=== PATIENT | male | born 1975 | race Caucasian/White ===

== ENCOUNTER 2025-02-02 13:47 | Emergency (ER) | payer MEDICAID, SELFPAY ==
[2025-02-02 14:18] VITALS: BP 156/98; PULSE 93; RESP 20; TEMP 36.7; O2SAT 96
--- NOTE | 2025-02-02 14:29 | EKG_ITS ---
[facility] [place] [facility] Test Date: 2025-02-02 Pat Name: MARQUIS MAY Department: Room: - Gender: Male Respiratory Support Technician: : 1975 Requested By: Sharda Farah Order Number: [id number] Reading MD: Sharda Farah Measurements Intervals [facility] Rate: 93 P: 35 NM: 177 QRS: -24 QRSD: 107 T: 75 QT: 361 QTc: 451 Interpretive Statements SINUS RHYTHM MODERATE VOLTAGE CRITERIA FOR LVH, CONSIDER NORMAL VARIANT [MEETS CRITERIA IN ONE OF: R(aVL), S(V1), R(V5), R(V5/V6)+S(V1)] ANTERIOR MYOCARDIAL INFARCTION , OF INDETERMINATE AGE [40+ ms Q WAVE AND/OR ST/T ABNORMALITY IN V3/V4] Compared to ECG 05/01/2021 11:41:03 Myocardial infarct finding now present Sinus bradycardia no longer present Sinus arrhythmia no longer present T-wave abnormality no longer present /store/S0/[id number].pdf
--- NOTE | 2025-02-02 14:33 | EDNOTE_ITS ---
<Statement entered by Urmila Riddle MD - 02/03/25 03:41> As co-signing physician, I was present and available for consult prn. I concur with the plan and care as documented by the midlevel provider. ED Recheck Abnl Lab Rx-RME/HPI General Chief Complaint: Recheck/Abnormal Lab/Rx Stated Complaint: High sugar, dizziness, flank pain, possible DKA Time Seen by Provider: 02/02/25 13:57 Arrival date/time: 02/02/25 13:47 RME / HPI RME / HPI narrative: 49-year-old male patient with significant history of diabetes mellitus, came in for evaluation regarding blood sugar above 500 at home for the last few days. P atient was also noted to be nauseous and vomiting. Denies any abdominal pain denies any fever denies any chest pain denies any cough denies any other complaints. Patient is drinking a lot of soda according to the family. Currently taking Jardiance and metformin with good compliance. Related Data Home Medications ?Medication ?Instructions ?Recorded ?Confirmed amlodipine 5 mg tablet 5 mg PO QDAY 01/12/20 hydrocodone 10 mg-acetaminophen 1 tab PO Q4H PRN Pain 01/12/20 04/21/24 325 mg tablet metoprolol succinate 25 mg 25 mg PO QDAY 01/12/2003/25 tablet,extended release 24 hr ascorbic acid (vitamin C) 1,000 mg 1 cap PO DAILY 12/2104/21/24 capsule,extended release aspirin 81 mg tablet,delayed 81 mg PO QDAY 01/02/21 release atorvastatin 40 mg tablet 40 mg PO QDAY 01/02/2104/21 empagliflozin 10 mg tablet 10 mg PO QAM 05/01/2104/21 (Jardiance) liraglutide 0.6 mg/0.1 mL (18 mg/3 1.8 mg subcut Q24H 05/01/21 04/21/24 mL) subcutaneous pen injector (Victoza 2-Kranthi) metformin 500 mg tablet 500 mg PO BID 05/01/2104/21 tizanidine 2 mg capsule 2 mg PO HS 05/01/21 04/21/24 Previous Rx's ?Medication ?Instructions ?Recorded meloxicam 7.5 mg tablet 7.5 mg PO QDAY #45 tabs 02/0 02/13 metoclopramide HCl 10 mg tablet 10 mg PO Q8H PRN nause a and 02/02/25 (Reglan) vomiting #20 tabs Allergies Allergy/AdvReac Type Severity Reaction Status Date / Time No Known Allergies Allergy Verified 02/02/25 13:56 Review of Systems Review of Systems Narrative Review of Systems: Review of system reviewed and within normal limits except mentioned in HPI ED Exam Narrative Physical exam: VITAL SIGNS: Reviewed. GENERAL APPEARANCE: Alert and interactive, follows commands, no acute distress, HEAD AND FACE: Non-traumatic. ENT: PERRL, pink conjunctivitis, eyelid no trauma, Mucous membrane moist. NECK: Supple, nontender, no nuchal rigidity. CHEST: No tenderness, no crepitus, no paradoxical movement, no retractions. LUNGS: Clear, well ventilated, symmetric, no rales, no wheezing, no ronchi, no stridor, good breath sounds bilaterally. HEART: Regular rate, regular rhythm, no murmur, no gallops. ABDOMEN: Soft, positive bowel sounds, nondistended, no guarding, nontender, no rebound, no masses, RECTAL: Deferred. GENITAL: Deferred. NEUROLOGICAL: Gross motor function intact sensory function intact, Appropriate for age. MUSCULOSKELETAL: low back nontender, full range of motion. EXTREMITIES: Nontender, full range of motion. SKIN: Color pink, dry, no rash, no lacerations, no abrasions, no contusions. LYMPHATICS: Deferred. Course Quality Measures none Orders Category Date Time Status EKG (ED ONLY) *Do not use* NOW Care 02/02/25 14:30 Completed EKG (ED Only) Stat Exams 02/02/25 14:29 Draft Acetone [Beta Hydroxybutyrate] Stat Lab 02/02/25 14:46 Completed CBC [CBC] Stat Lab 02/02/25 14:46 Completed CMP [Comprehensive Metabolic Panel] Stat Lab 02/02/25 14:46 Completed Lipase Stat Lab 02/02/25 14:46 Completed Magnesium Stat Lab 02/02/25 14:46 Completed UA, C/S IF [Urinalysis, C/S if Indicated] Stat Lab 02/02/25 14:57 Completed Ondansetron Odt [Zofran Odt] Med 02/02/25 14:31 Discontinued 4 mg PO X1 ONE Ringers Lactated 1000 ml [Lactated Ringers] 1,000 ml Med 02/02/25 14:30 Discontinued IV 999 mls/hr Ringers Lactated 1000 ml [Lactated Ringers] 1,000 ml Med 02/02/25 14:31 Discontinued IV 999 mls/hr Vital Signs Vital signs: Vital Signs Temperature 98.0 F 02/02/25 14:18 Pulse Rate 93 02/02/25 14:18 Respiratory Rate 20 02/02/25 14:18 Blood Pressure 156/98 H 02/02/25 14:18 Pulse Oximetry (%) 96 02/02/25 14:18 Oxygen Delivery Method Room Air 02/02/25 14:18 Recheck / Abnormal Lab / Rx MDM Narrative MDM Narrative:: 49-year-old male patient with significant history of diabetes mellitus, came in for evaluation regarding blood sugar above 500 at home for the last few days. Patient was also noted to be nauseous and vomiting. Denies any abdominal pain denies any fever denies any chest pain denies any cough denies any other complaints. Patient is drinking a lot of soda according to the family. Currently taking Jardiance and metformin with good compliance. Patient's workup unremarkable except for glucose of 403 with no DKA. Urinalysis no UTI. EKG showed sinus rhythm, ventricular rate of 93 bpm, no ST segment elevation depression noted. Patient received 2 L of IV fluids, blood sugar was noted to be 311 prior to discharge. Was advised to stop drinking soda. Patient data External records reviewed:: None Clinical information provided by:: patient Social determinants that could affect healthcare access:: none Patient has the following chronic illnesses:: Diabetes mellitus How is presenting disease/condition affected by chronic disease/condition?: exacerbated by Evaluation data The following diagnostics were reviewed and interpreted by me:: lab results Lab and/or radiology exams considered but not ordered:: None Interpretation Summary: See results [facility] Medications / Prescriptions Medications or Prescriptions considered but not ordered:: None Medication administrations:: Medication Administration History Discontinued Medications Lactated Ringer's (Lactated Ringers) 1,000 mls @ 999 mls/hr IV .Q1H1M ONE Stop: 02/02/25 15:30 Last Infusion: 02/02/25 19:34 Dose: Infused Documented By: Admin: 02/02/25 17:35 Dose: 999 mls/hr Documented By: RUDDY Lactated Ringer's (Lactated Ringers) 1,000 mls @ 999 mls/hr IV .Q1H1M ONE Stop: 02/02/25 15:31 Last Infusion: 02/02/25 19:34 Dose: Infused Documented By: Admin: 02/02/25 18:35 Dose: 999 mls/hr Documented By: YURI Ondansetron HCl (Ondansetron Odt 4 Mg Tabrap) 4 mg PO X1 ONE; Protocol Stop: 02/02/25 14:32 Last Admin: 02/02/25 17:35 Dose: 4 mg Documented By: RUDDY Khan and 2 L of IV fluids Consultations Consultation(s) initiated? (list below): No Diagnosis Recheck Differential Diagnosis: other (Hyperglycemia secondary to diabetes mellitus, dehydration, nausea) Most likely diagnosis given after review of the tests above:: Hyperglycemia secondary to diabetes Admission Indicated Admission indicated?: not indicated Admission Request Was there a request for admission?: No Disposition Plan Disposition Plan: Discharge Discharge Attestation Discharge Attestation: The patient and all family members were given an opportunity to ask questions and understood the discharge instructions. Discharge instructions specifically effects, indications for sooner follow up or return to the emergency department, and the expected course of current diagnosis. Patient condition: Stable Discharge Plan Plan Patient Disposition: HOME (Self Care) Discharge Disposition comment: Stable Prescriptions/Referrals Prescriptions/Med Rec: New metoclopramide HCl [Reglan] 10 mg tablet 10 mg PO Q8H PRN (Reason: nausea and vomiting) Qty: 20 0RF No Action meloxicam 7.5 mg tablet 7.5 mg PO QDAY Qty: 45 3RF metformin 500 mg Tablet 500 mg PO BID tizanidine 2 mg Capsule 2 mg PO HS Victoza 2-Kranthi 0.6 mg/0.1 mL (18 mg/3 mL) Pen Injector 1.8 mg SUBCUT Q24H Jardiance 10 mg Tablet 10 mg PO QAM amlodipine 5 mg Tablet 5 mg PO QDAY hydrocodone-acetaminophen 10-325 mg Tablet 1 tab PO Q4H PRN (Reason: Pain) metoprolol succinate 25 mg Tablet Extended Release 24 Hr 25 mg PO QDAY atorvastatin 40 mg Tablet 40 mg PO QDAY aspirin 81 mg Tablet,Delayed Release (Dr/Ec) 81 mg PO QDAY ascorbic acid (vitamin C) 1,000 mg Capsule, Extended Release 1 cap PO DAILY Referrals: Rory Seay MD [Primary Care Provider] - In 1 week Problem List Clinical Impression: Hyperglycemia, Nausea Patient/Caregiver Discharge Instructions Education Materials: High Blood Sugar (Hyperglycemia) Additional Instructions: Thank you for the opportunity for serving you today. You are stable for discharged . You are advised to: Follow-up with your PCP in 1 to 2 days Return to ED for worsening of symptoms Increase oral fluids Please stop drinking soda Print Language: Kyrgyz Stand Alone Forms: Radha Award Info., Patient Portal Info Letter
[2025-02-02 15:04] LABS: Collection Type, Urine Clean Catch; RBC,Urine 0 /hpf (0-3); Squamous Epithelial Cell,Urine 0 /hpf (0-5); WBC,Urine 0 /hpf (0-5)
[2025-02-02 15:19] LABS: Beta Hydroxybutyrate 0.2 mmol/L (<0.6)
[2025-02-02 15:21] LABS: Basophils # (Auto) 0.1 Thou/mm3 (0.0-0.2); Basophils % (Auto) 1 % (0-2.5); Eosinophils # (Auto) 0.3 Thou/mm3 (0.0-0.5); Eosinophils % (Auto) 3 % (0-10); Hematocrit 43.1 % (41.0-53.0); Immature Granulocytes % (Auto) 0 % (0-0); Immature Granulocytes Auto 0.04 Thou/mm3 (0.00-0.00); Lymphocytes # (Auto) 3.2 Thou/mm3 (1.0-4.8); Lymphocytes % (Auto) 34 % (10-50); Mean Corpuscular HGB Conc 37.1 g/dl (31.0-37.0); Mean Corpuscular Hemoglobin 33.9 pg (25.0-35.0); Mean Corpuscular Volume 91 fL (80-100); Monocytes # (Auto) 0.7 Thou/mm3 (0.0-0.8); Monocytes % (Auto) 8 % (0-12); Neutrophils # (Auto) 5.2 Thou/mm3 (1.8-7.7); Neutrophils % (Auto) 55 % (37-80); Nucleated Red Blood Cell % 0 /100 WBC (0); Platelet Count 230 Thou/mm3 (140-440); Red Blood Count 4.72 Miln/mm3 (4.50-5.90); White Blood Count 9.4 Thou/mm3 (3.8-10.6)
[2025-02-02 15:29] LABS: Bilirubin,Urine Negative (Negative); Blood,Urine Negative (Negative); Clarity,Urine Clear (Clear/Hazy); Color,Urine Lt-Yellow (Lt Yel-Yel); Culture Indicated,Urine Not Indicated; Glucose, Urine 4+ (Negative); Ketones,Urine Negative (Negative); Leukocyte Esterase,Urine Negative (Negative); Nitrite,Urine Negative (Negative); PH,Urine 5.5 (5.0-7.0); Protein,Urine Trace (Neg - Trace); Specific Gravity,Urine 1.041 (1.001-1.035); Urobilinogen,Urine Negative mg/dL (0.0-1.0)
[2025-02-02 15:52] LABS: Alanine Aminotransferase 146 U/L (10-49); Albumin, Serum 4.6 gm/dL (3.5-5.0); Albumin/Globulin Ratio 1.2 (1.2-2.2); Alkaline Phosphatase 75 U/L (46-116); Anion Gap 13 (7-16); Aspartate Amino Transferase 129 U/L (0-34); BUN/Creatinine Ratio 11 Ratio (12-20); Blood Urea Nitrogen 13 mg/dL (9-23); Calcium 9.7 mg/dL (8.3-10.6); Calcium (Corrected) 9.7 mg/dL (8.5-10.1); Carbon Dioxide 23.6 mMol/L (20.0-31.0); Chloride 95 mMol/L (98-107); Creatinine (Component) 1.2 mg/dL (0.6-1.3); Globulin 3.8 gm/dL (2.3-3.5); Lipase 39 U/L (12-53); Magnesium 1.9 mg/dL (1.6-2.6); Osmolality,Calculated 281 (275-295); Potassium 3.8 mMol/L (3.4-5.1); Sodium 132 mMol/L (136-145); Total Protein 8.4 gm/dL (5.7-8.2); eGFR > 60 See Note
[2025-02-02 15:55] LABS: Glucose 403 mg/dL (74-106)
[2025-02-02 17:28] VITALS: BP 154/94; PULSE 81; RESP 20; TEMP 36.6; O2SAT 95
[2025-02-02] MEDS: RINGERS LACTATED 1000 ML 1,000 ML 999 ML IV ×2 (17:35→18:35)
[2025-02-02] MEDS: ONDANSETRON ODT 4 MG TABRAP PO (17:35)
[2025-02-02 18:51] VITALS: BP 174/110; PULSE 70; RESP 17; TEMP 36.3; O2SAT 97
[2025-02-02 19:55] VITALS: RESP 18
== END 2025-02-02 19:56 | disposition home or self-care (01) ==
PROVIDERS: Nurse Practitioner Family; Emergency Provider Emergency Medicine; PCP Family Medicine
DX: E11.65 Type 2 diabetes mellitus with hyperglycemia (principal); Z79.84 Long term (current) use of oral hypoglycemic drugs; Z79.85 Long-term (current) use of injectable non-insulin antidiabetic drugs
CPT/HCPCS: 36415; 80053; 81001; 82010; 83690; 83735; 85025; 96360; 99284; J7120; Q0162